=== PATIENT | male | born 1965 | race Caucasian/White ===

== ENCOUNTER 2022-12-04 07:50 | Day surgery (SDC) | payer MEDICAID ==
[~2022-12-04] VITALS: Ht 167.6 cm; Wt 89.8 kg
[2022-12-04] MEDS ORDERED: DIPHENHYDRAMINE INJ 50 MG/ML VIAL ONE (10:00)
[2022-12-04] MEDS: fentaNYL CITRATE/PF 100 MCG/2 ML AMP ONE ×3 (10:01→10:21)
[2022-12-04] MEDS: MIDAZOLAM HCL 5 MG/5 ML VIAL ONE ×3 (10:01→10:21)
[2022-12-04 14:30] VITALS: BP_SYST 119
== END 2022-12-06 14:32 | disposition home or self-care (01) ==
LOC: SDS 07:50 → SMU 07:51 → SDS 12-06 14:32
PROVIDERS: ATTEND Internal Medicine
DX: Z12.11 Encounter for screening for malignant neoplasm of colon (principal); D12.4 Benign neoplasm of descending colon; K57.30 Diverticulosis of large intestine without perforation or abscess without bleeding; K64.8 Other hemorrhoids; Z87.891 Personal history of nicotine dependence; Z20.822 Contact with and (suspected) exposure to COVID-19
CPT/HCPCS: 36415 ×2; 45385; 87426; 88305; 99152; 99153; U0003; G0378; J1200; J2250; J3010; J7030

== ENCOUNTER 2024-02-10 11:03 | Day surgery (SDC) | payer MEDICAID, OTHER ==
[~2024-02-10] VITALS: Ht 167.6 cm; Wt 87.5 kg
[~2024-02-10 11:03] MED LIST: DEXAMETHASONE SOD PHOSPHATE 4 MG/ML VIAL ONE; LIDOCAINE 2%, 20 ML MDV ONE; NORMAL SALINE 10 ML VIAL ONE; iopamidoL 50 ML VIAL IV ONE
[2024-02-10] MEDS ORDERED: DIPHENHYDRAMINE INJ 50 MG/ML VIAL ONE (12:56)
[2024-02-10 14:09] VITALS: O2SAT 99
[2024-02-10] MEDS: MIDAZOLAM HCL 5 MG/5 ML VIAL ONE (14:27)
[2024-02-10] MEDS: fentaNYL CITRATE/PF 100 MCG/2 ML AMP ONE (14:30)
[2024-02-10 18:21] VITALS: BP_SYST 116; PULSE 60; RESP 16
== END 2024-02-10 15:30 | disposition home or self-care (01) ==
LOC: SDS 11:03 → SMU 11:04 → SDS 15:30
PROVIDERS: ATTEND Internal Medicine
DX: M51.16 Intervertebral disc disorders with radiculopathy, lumbar region (principal); G89.29 Other chronic pain; M79.10 Myalgia, unspecified site; M96.1 Postlaminectomy syndrome, not elsewhere classified; Z98.1 Arthrodesis status; Z79.899 Other long term (current) drug therapy
CPT/HCPCS: 64483; J1100; J2250; J3010; Q9967; 76000; J1200; J2001

== ENCOUNTER 2024-06-01 09:54 | Day surgery (SDC) | payer OTHER ==
[~2024-06-01] VITALS: Ht 167.6 cm; Wt 85.7 kg
[2024-06-01] MEDS ORDERED: fentaNYL CITRATE/PF 100 MCG/2 ML AMP ONE (11:32)
[2024-06-01] MEDS ORDERED: MIDAZOLAM HCL 5 MG/5 ML VIAL ONE (11:33)
[2024-06-01] MEDS ORDERED: LIDOCAINE 2%, 20 ML MDV ONE (12:00)
[2024-06-01] MEDS: MIDAZOLAM HCL 5 MG/5 ML VIAL IVP ONE (12:13)
[2024-06-01 13:14] VITALS: O2SAT 97
[2024-06-01 16:34] VITALS: BP_SYST 130; PULSE 60; RESP 20
== END 2024-06-01 13:55 | disposition home or self-care (01) ==
LOC: SDS 09:54 → SMU 09:56 → SDS 13:55
PROVIDERS: ATTEND Internal Medicine
DX: M51.16 Intervertebral disc disorders with radiculopathy, lumbar region (principal); G89.29 Other chronic pain; M79.10 Myalgia, unspecified site; M96.1 Postlaminectomy syndrome, not elsewhere classified; Z90.49 Acquired absence of other specified parts of digestive tract; Z98.1 Arthrodesis status
CPT/HCPCS: 62323; J2250; Q9967; J1010; 76000; J1030; J2001; J3010